=== PATIENT | male | born 1950 | race Two or more races ===

== ENCOUNTER 2017-11-12 21:59 | Emergency (ER) | payer MEDICARE ==
--- NOTE | 2017-11-12 22:28 | EDM.PDOC ---
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 He states that he was carrying some lumbar on 11/05/2017, when one of his feet caught, causing him to twist his body. He developed pain in his upper left buttock. The pain does not radiate. He has tried a heating pad and a topical cream, which he states was doing well up until today. He states that his back started hurting today after work, around 16:00. The pain is made worse if he lies down, although twisting his back does not cause pain. The patient states that he had a lumbar fusion around 30 years ago, and that he has not had any problems with it since. The patient does not have a PCP. left lower back Pain Score (Numeric/FACES): 9 - Related Data Allergies Allergy/AdvReac Type Severity Reaction Status Date / Time No Known Allergies Allergy Verified 11/12/17 22:08 Home Meds: Home Meds Methyl Salicylate/Menth/Camph [Pain Relieving Rub Cream] 1 dose TP ASDIRECTED PRN 11/12/17 [History] Orphenadrine [Norflex] 1 tab PO Q12H PRN #20 tab.er 11/13/17 [Rx] Past Medical History - Past Surgical History Neurological Surgical History: Reports: Lumbar Spine (fusion, around 1987) Social & Family History - Family History Family Medical History: Noncontributory - Tobacco Use Smoking Status *Q: Current Every Day Smoker Years of Tobacco use: 49 Packs/Tins Daily: 0.5 - Caffeine Use Caffeine Use: Reports: Soda - Alcohol Use Alcohol Use History: Yes Alcohol Use Frequency: Socially - Recreational Drug Use Recreational Drug Use: No - Living Situation & Occupation Living situation: Reports: Single, with Family (Son) 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 ED EXAM,LOWER BACK PAIN/INJURY - Physical Exam Exam: See Below Exam Limited By: No Limitations General Appearance: Alert, WD/WN, No Apparent Distress Eye Exam: Bilateral Eye: Normal Inspection Ears: Normal External Exam, Hearing Grossly Normal Nose: Normal Inspection, No Blood Throat/Mouth: Normal Inspection, Normal Lips, Normal Voice, No Airway Compromise Head: Atraumatic, Normocephalic Neck: Normal Inspection, Full Range of Motion Respiratory/Chest: No Respiratory Distress, Lungs Clear, Normal Breath Sounds, No Accessory Muscle Use Cardiovascular: Normal Peripheral Pulses, Regular Rate, Rhythm, No Edema, No Gallop, No JVD, No Murmur, No Rub GI/Abdominal: Normal Bowel Sounds, Soft, Non-Tender, No Organomegaly, No Distention, No Abnormal Bruit, No Mass (Male) Exam: Deferred Rectal (Males) Exam: Deferred Back Exam: Normal Inspection, Full Range of Motion, NT Extremities: Normal Inspection, Normal Range of Motion, No Pedal Edema, Normal Capillary Refill, Other (Reproducible tenderness to a single location in the patient's upper left buttock. Nontender elsewhere.) Neurological: Alert, No Motor/Sensory Deficits, Oriented x 3 Psychiatric: Normal Affect Skin Exam: Warm, Dry, Intact, Normal Color, No Rash Course - Vital Signs Last Recorded V/S: Last Vital Signs Temp 36.7 C 11/12/17 22:04 Pulse 53 L 11/12/17 22:04 Resp 18 11/12/17 22:04 BP 158/89 H 11/12/17 22:04 Pulse Ox 99 11/12/17 22:04 - Orders/Labs/Meds Orders: Active Orders 24 hr Category Date Time Status UA W/MICROSCOPIC [URIN] Stat Lab 11/12/17 22:40 Ordered Labs: Laboratory Tests 11/12/17 Range/Units 22:40 Urine Color Yellow (Yellow) Urine Appearance Clear (Clear) Urine pH 6.5 (5.0-8.0) Ur Specific [place] 1.020 (1.005-1.030) Urine Protein Negative (Negative) Urine Glucose (UA) Negative (Negative) Urine Ketones Negative (Negative) Urine Occult Blood Negative (Negative) Urine Nitrite Negative (Negative) Urine Bilirubin Negative (Negative) Urine Urobilinogen 1.0 (0.2-1.0) Ur Leukocyte Esterase Negative (Negative) Urine RBC 0-5 (0-5) /hpf Urine WBC 0-5 (0-5) /hpf Ur Epithelial Cells 0-5 (0-5) /hpf Urine Bacteria Not seen (FEW) /hpf Urine Mucus Moderate H (FEW) /hpf Meds: Medications Discontinued Medications Generic Name Dose Route Start Last Admin Trade Name Carlos PRN Reason Stop Dose Admin Orphenadrine Citrate 100 mg 11/12/17 22:53 11/12/17 23:08 Norflex PO 11/12/17 22:54 100 mg ONETIME STA Administration - Re-Assessments/Exams Free Text/Narrative Re-Assessment/Exam: 11/12/17 22:27 The patient has reproducible point tenderness to his upper left buttock. This is almost certainly a muscle spasm, however, I just want to make sure that it is not an unusual presentation of a ureterolith, therefore I have asked the patient to provide a urine sample that we will check for blood. 11/13/17 00:02 Test results discussed with the patient. His urinalysis is completely normal, without suggestion of hematuria or UTI. He has been started on oral Norflex, and I will prescribe a ten-day course. I will refer him to Dr. Chaudhry, should his symptoms not improve over the next few days. Departure - Departure Time of Disposition: 00:02 Disposition: Home, Self-Care 01 Condition: Good Clinical Impression: Spasm of muscle of lower back - Discharge Information Prescriptions: Orphenadrine [Norflex] 1 tab PO Q12H PRN #20 tab.er PRN Reason: Muscle Spasm Instructions: Muscle Cramps and Spasms Referrals: PCP,None [Primary Care Provider] - Gladys Chaudhry MD [Physician] - Forms: ED Department Discharge Additional Instructions: You were seen in the emergency room for lower left back pain since 11/05/2017. Workup in the ER included a urinalysis, which returned normal. There is no sign of a kidney stone or urinary tract infection. Based on your history and physical examination, your low back pain is MOST LIKELY due to a muscle spasm or strained muscle. You have been started on the muscle relaxant Norflex. A prescription for Norflex has been sent to the [facility] located in the [place] store. Take one tablet every 12 hours, as prescribed. You may also take [id number] ibuprofen, 2-3 tablets (400-600 mg) every 8 hours, with food. If you are still having pain after 2 or 3 days, please follow-up with Dr. Gladys Chaudhry. If any other problems, please do not hesitate to return to the ER. - My Orders Last 24 Hours: My Active Orders 11/12/17 22:40 UA W/MICROSCOPIC [URIN] Stat - Assessment/Plan Last 24 Hours: My Active Orders 11/12/17 22:40 UA W/MICROSCOPIC [URIN] Stat
[2017-11-12] MEDS ORDERED: Orphenadrine 100 MG Tab.ER PO STA (22:53)
== END 2017-11-13 00:16 | disposition home or self-care (01) ==
LOC: JD.ED 21:59
DX: M62.830 Muscle spasm of back (principal); F17.210 Nicotine dependence, cigarettes, uncomplicated
CPT/HCPCS: 81001; 99283; A9270

== ENCOUNTER 2018-10-09 08:47 | Day surgery (SDC) | payer MEDICARE, OTHER ==
[~2018-10-09 08:47] MED LIST: Lactated Ringers 1,000 ML IV SCH; Lidocaine 1%/Sod Bicarbonate in NS 8.4% 1 ML Syringe IDERM PRN; Sodium Chloride 0.9% 10 ML Syringe FLUSH PRN
[2018-10-09] MEDS ORDERED: Midazolam 1 MG/ML 2 ML SDV ONE (09:03)
[2018-10-09] MEDS ORDERED: fentaNYL 100 MCG/2 ML SDV ONE (09:03)
[2018-10-09] MEDS ORDERED: Lidocaine 1% 4 ML ONE (09:04)
[2018-10-09] MEDS ORDERED: Propofol 200 MG/20 ML SDV ONE (09:08)
[2018-10-09] MEDS ORDERED: Lidocaine 1% 30 ML SDV ONE (10:26)
[2018-10-09] MEDS ORDERED: Triamcinolone Acetonide 40 MG/ML 1 ML MDV ONE (10:34)
--- NOTE | 2018-10-09 10:39 | PCM.PREANE ---
Preanesthetic Assessment - Anesthesia/Transfusion/Family Hx Anesthesia History: Prior Anesthesia Without Reaction Family History of Anesthesia Reaction: No Transfusion History: No Prior Transfusion(s) Intubation History: Unknown - Review of Systems General: No Symptoms Pulmonary: No Symptoms (Smoker: 1ppd times 30 years.) Cardiovascular: No Symptoms Gastrointestinal: No Symptoms Neurological: No Symptoms (History of back pain/Lumbar fusion 1987), Numbness ( bilateral CTS) Other: Reports: None (Prostate CA 2018 (surgery May 2018)-metastasis to intrapelvic lymph node) - Physical Assessment NPO Status Date: 10/08/18 NPO Status Time: 22:00 Pulse: 54 O2 Sat by Pulse Oximetry: 96 Respiratory Rate: 16 Blood Pressure: 138/89 Temperature: 36.9 C Vital Signs: Last Vital Signs Temp 36.9 C 10/09/18 09:00 Pulse 54 L 10/09/18 09:00 Resp 16 10/09/18 09:00 BP 138/89 10/09/18 09:00 Pulse Ox 96 10/09/18 09:00 Height: 1.63 m Weight: 74.389 kg ASA Class: 3 Mental Status: Alert & Oriented x3 Airway Class: Mallampati = 2 Dentition: Reports: Normal Dentition (Implants noted (solid)), Broken Tooth/ Teeth, Missing Tooth/Teeth Thyro-Mental Finger Breadths: 3 Mouth Opening Finger Breadths: 3 ROM/Head Extension: Full Lungs: Clear to Auscultation, Normal Respiratory Effort Cardiovascular: Regular Rate, Regular Rhythm, No Murmurs - Lab Values: All lab values reviewed and noted and within acceptable ranges to proceed with scheduled procedure. MRSA Positive - Imaging/EKG Impressions: EKG: SB rate =52, PVC's noted. - Allergies Allergies/Adverse Reactions: Allergies Allergy/AdvReac Type Severity Reaction Status Date / Time No Known Allergies Allergy Verified 10/08/18 14:44 - Anesthesia Plan Pre-Op Medication Ordered: None - Acknowledgements Anesthesia Type Planned: MAC Pt an Appropriate Candidate for the Planned Anesthesia: Yes Alternatives and Risks of Anesthesia Discussed w Pt/Guardian: Yes Pt/Guardian Understands and Agrees with Anesthesia Plan: Yes PreAnesthesia Questionnaire - Past Health History Medical/Surgical History: Denies Medical/Surgical History HEENT History: Reports: Impaired Vision, Other (See Below) Other HEENT History: Uses reading glasses Cardiovascular History: Reports: None Respiratory History: Reports: None Gastrointestinal History: Reports: None Genitourinary History: Reports: Other (See Below) Other Genitourinary History: Urinary hesitancy Musculoskeletal History: Reports: Back Pain, Chronic, Other (See Below) Other Musculoskeletal History: Right knee bursitis, Lumbar back pain, SI joint pain, carpal tunnel syndrome Neurological History: Reports: None Psychiatric History: Reports: None Endocrine/Metabolic History: Reports: None Hematologic History: Reports: None Immunologic History: Reports: None Oncologic (Cancer) History: Reports: Prostate Dermatologic History: Reports: None - Infectious Disease History Infectious Disease History: Reports: MRSA - Past Surgical History Head Surgeries/Procedures: Reports: None HEENT Surgical History: Reports: None Cardiovascular Surgical History: Reports: None Respiratory Surgical History: Reports: None GI Surgical History: Reports: None Male Surgical History: Reports: Prostatectomy Endocrine Surgical History: Reports: None Neurological Surgical History: Reports: None Musculoskeletal Surgical History: Reports: Other (See Below) Other Musculoskeletal Surgeries/Procedures:: Lumbar fusion Oncologic Surgical History: Reports: None Dermatological Surgical History: Reports: None - SUBSTANCE USE Smoking Status *Q: Current Every Day Smoker Tobacco Use Within Last Twelve Months: Cigarettes Recreational Drug Use History: No - HOME MEDS Home Medications: Home Meds Acetaminophen [Tylenol] 325 - 650 mg PO Q6H PRN 10/08/18 [History] Calcium Carb/Magnesium Hydrox [Antacid 1000-200 mg Tab Chew] 1 tab PO DAILY [History] Cholecalciferol (Vitamin D3) [Vitamin D3] 1,000 units PO DAILY 10/08/18 [History ] Leuprolide Acetate [Lupron Depot] 22.5 mg IM Q90D 10/08/18 [History] traMADol [Ultram] 50 - 100 mg PO Q6H PRN #10 tab 10/09/18 [Rx] - CURRENT (IN HOUSE) MEDS Current Meds: Current Medications Lactated Ringer's (Ringers, Lactated) 1,000 mls @ 125 mls/hr IV ASDIRECTED STEPHEN Stop: 10/09/18 23:00 Last Admin: 10/09/18 09:05 Dose: 125 mls/hr Vancomycin HCl 1 gm/ Sodium (Chloride) 250 mls @ 250 mls/hr IV ONETIME STEPHEN Stop: 10/09/18 12:00 Last Admin: 10/09/18 09:26 Dose: 250 mls/hr Lidocaine/Sodium Bicarbonate (Buffered Lidocaine 1% In Ns 8.4%) 0.25 ml IDERM ONETIME PRN PRN Reason: Prior to IV Start Stop: 10/09/18 18:00 Last Admin: 10/09/18 09:05 Dose: 0.25 ml Sodium Chloride (Saline Flush) 10 ml FLUSH ASDIRECTED PRN PRN Reason: Keep Vein Open Stop: 10/09/18 18:00 Discontinued Medications Bupivacaine HCl (Marcaine 0.25%) Confirm Administered Dose 30 ml .ROUTE .STK- MED ONE Stop: 10/09/18 10:27 Fentanyl (Sublimaze) Confirm Administered Dose 100 mcg .ROUTE .STK-MED ONE Stop: 10/09/18 09:04 Lidocaine HCl (Xylocaine-Mpf 1%) Confirm Administered Dose 4 mls @ as directed .ROUTE .STK-MED ONE Stop: 10/09/18 09:05 Lidocaine HCl (Xylocaine-Mpf 1%) Confirm Administered Dose 30 ml .ROUTE .STK- MED ONE Stop: 10/09/18 10:27 Midazolam HCl (Versed 1 Mg/Ml) Confirm Administered Dose 2 mg .ROUTE .STK-MED ONE Stop: 10/09/18 09:04 Propofol (Diprivan 20 Ml) Confirm Administered Dose 200 mg .ROUTE .STK-MED ONE Stop: 10/09/18 09:09
[2018-10-09] MEDS ORDERED: ceFAZolin 1 GM Vial ONE (10:44)
[2018-10-09] MEDS: Bupivacaine 0.25% 30 ML SDV ONE ×2 (11:09→11:19)
[2018-10-09] MEDS ORDERED: traMADol 50 MG Tab PO SCH (12:05)
--- NOTE | 2018-10-14 07:02 | PCM.OPNOTE ---
- General Post-Op/Procedure Note Date of Surgery/Procedure: 10/09/18 Operative Procedure(s): right carpal tunnel release with left carpal tunnel injection Pre Op Diagnosis: bilateral median nerve compression neuropathy Post-Op Diagnosis: Same Anesthesia Technique: Local, MAC Primary Surgeon: Tyrell Hernandez Anesthesia Provider: Altaf Moreno Mineral Surveyor: Briana Tony EBL in mLs: 5 Complications: None Condition: Good
--- NOTE | 2018-10-14 07:50 | OR ---
DATE OF OPERATION: 10/09/2018 SURGEON: Tyrell Hernandez MD OPERATION PERFORMED: Right carpal tunnel release with left carpal tunnel injection. PREOPERATIVE DIAGNOSIS: Bilateral median nerve compression neuropathy. POSTOPERATIVE DIAGNOSIS: Bilateral median nerve compression neuropathy. ANESTHESIA: Local MAC. AUTOMOBILE SALES CONSULTANT: Briana Tony PA-C. ANESTHESIA PROVIDER: Altaf Moreno CRNA. ESTIMATED BLOOD LOSS: Less than 5 mL. COMPLICATIONS: None. CONDITION: Stable. DESCRIPTION OF PROCEDURE: The patient was identified in the preop holding area. Proper site was marked and identified by the surgeon. The patient was taken back to the operating theater where after adequate anesthesia, the patient's right upper extremity was sterilely prepped and draped in the usual sterile fashion. OR time-out was performed. The patient did not receive antibiotics and it is not indicated for soft tissue hand procedure. At this time, the right upper extremity was exsanguinated and an Esmarch was used as a tourniquet on the forearm. At this time, using 1% lidocaine without epinephrine and 0.25% Marcaine without epinephrine, the palmar cutaneous branch of the median nerve was anesthetized and then the incisional site was anesthetized using Cooley cardinal line and ulnar border of the fourth digit as reference. Once this had set up, an incision was made. Blunt dissection was taken down to the palmar cutaneous fascia. Palmar cutaneous fascia was incised with a [place] blade. At this time, the transverse carpal ligament was identified. A small rent was made in the transverse carpal ligament with a [place] blade under direct visualization. Resection of the transverse carpal ligament was done distally using tenotomy scissors making sure to stop short of the palmar arch. At this time, attention was turned proximally after it was found to be adequately released. Using the tenotomy scissors keeping the tips ulnar to protect the palmar cutaneous branch of the median nerve, the superficial forearm fascia as well as the transverse carpal ligament were resected proximally. It was found to be adequate release both proximally and distally. At this time, adequate saline was irrigated through the wound. 4-0 nylon sutures were used closure of the skin. After this was completed, then under sterile technique, 1 mL 40 mg Kenalog and 2 mL of 0.25% Marcaine were injected to the left carpal tunnel. The patient tolerated both procedures well. The patient was placed in a sterile soft dressing and sent to PACU in stable condition. MMPAGE /[id number]
== END 2018-10-09 12:15 | disposition home or self-care (01) ==
LOC: JD.SDS 08:47
PROVIDERS: ATTEND Orthopaedic Surgery
DX: G56.03 Carpal tunnel syndrome, bilateral upper limbs (principal); F17.210 Nicotine dependence, cigarettes, uncomplicated; C61 Malignant neoplasm of prostate; C77.5 Secondary and unspecified malignant neoplasm of intrapelvic lymph nodes; R10.2 Pelvic and perineal pain; M54.5 Low back pain; E66.3 Overweight; Z68.31 Body mass index [BMI] 31.0-31.9, adult; Z79.899 Other long term (current) drug therapy
CPT/HCPCS: 20605; 64721; A9270; J0690; J2001; J2250; J2704; J3010; J3301; J3370; J3490; J7050; J7120; 01810

== ENCOUNTER 2019-03-17 18:05 | Emergency (ER) | payer MEDICAID, MEDICARE ==
--- NOTE | 2019-03-17 19:14 | EDM.PDOC ---
ED HPI GENERAL MEDICAL PROBLEM - General Chief Complaint: ENT Problem Stated Complaint: DENTAL COMPLAINT Time Seen by Provider: 03/17/19 19:02 Source of Information: Reports: Patient History Limitations: Reports: No Limitations - History of Present Illness INITIAL COMMENTS - FREE TEXT/NARRATIVE: 68 year old male presents to the ED with severe constant pain originating from Rt lower lateral incisor and canine teeth. All of his teeth are in bad shape and he is awaiting to get all of them pulled out and use dentures. Current pain started yesterday pm. Has increased in intensity since. Advil helps somewhat. Had two up Lt teeth removed two weeks ago. Exam reveal all of hsi teeth are in bad shape and all need to be extracted. Current pain is coming from Rt lower canine and lateral incisor teeth. Treated with Motrin 600mg every 6hrs for pain and inflammation. Percocet tabs 5/325mg 1-2 tabs every 4-6hrs prn for pain relief x 14 tabs. Clindamycin 300mg tid for 8 days . Onset: Gradual Onset Date: 03/16/19 Onset Time: 14:00 Duration: Hour(s):, Getting Worse Location: Reports: Face ( dental pain Rt lowr teeth. ) Quality: Reports: Ache, Throbbing Severity: Severe (8/10) Improves with: Reports: Medication (Advil helps a little. ) Worsens with: Reports: Other (touching the teeth or trying to eat. ) Context: Reports: Other (spontaneous occurrence. ) Associated Symptoms: Reports: No Other Symptoms Treatments REVENUE CYCLE ANALYST: Reports: NSAIDS ( Motrin ) Right Lower Tooth/Teeth Pain Score (Numeric/FACES): 10 - Related Data Allergies Allergy/AdvReac Type Severity Reaction Status Date / Time No Known Allergies Allergy Verified 03/17/19 18:29 Home Meds: Home Meds Abiraterone Acetate 250 mg PO DAILY 03/17/19 [History] Clindamycin HCl 300 mg PO TID #24 capsule 03/17/19 [Rx] Levothyroxine 25 mcg PO DAILY 03/17/19 [History] oxyCODONE HCl/Acetaminophen [Percocet 5-325 mg Tablet] 1 - 2 each PO Q4H PRN # 14 tablet 03/17/19 [Rx] predniSONE [Prednisone] 5 mg PO DAILY 03/17/19 [History] Past Medical History - Past Health History Medical/Surgical History: Denies Medical/Surgical History HEENT History: Reports: Impaired Vision, Other (See Below) Other HEENT History: Uses reading glasses Cardiovascular History: Reports: None Respiratory History: Reports: None Gastrointestinal History: Reports: None Genitourinary History: Reports: Other (See Below) Other Genitourinary History: Urinary hesitancy Musculoskeletal History: Reports: Back Pain, Chronic, Other (See Below) Other Musculoskeletal History: Right knee bursitis, Lumbar back pain, SI joint pain, carpal tunnel syndrome Neurological History: Reports: None Psychiatric History: Reports: None Endocrine/Metabolic History: Reports: None Hematologic History: Reports: None Immunologic History: Reports: None Oncologic (Cancer) History: Reports: Prostate (Prostate carcinoma. Currently on testosterone suppression medication.) Dermatologic History: Reports: None - Infectious Disease History Infectious Disease History: Reports: MRSA - Past Surgical History Head Surgeries/Procedures: Reports: None HEENT Surgical History: Reports: None Cardiovascular Surgical History: Reports: None Respiratory Surgical History: Reports: None GI Surgical History: Reports: None Male Surgical History: Reports: Prostatectomy Endocrine Surgical History: Reports: None Neurological Surgical History: Reports: None Musculoskeletal Surgical History: Reports: Other (See Below) Other Musculoskeletal Surgeries/Procedures:: Lumbar fusion Oncologic Surgical History: Reports: None Dermatological Surgical History: Reports: None Social & Family History - Family History Family Medical History: Noncontributory - Tobacco Use Smoking Status *Q: Current Every Day Smoker Years of Tobacco use: 50 Packs/Tins Daily: 0.2 - Caffeine Use Caffeine Use: Reports: Soda - Living Situation & Occupation Living situation: Reports: Single, with Family (Son) 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 Denies : Fever, Chills, Weight Loss HEENT: Reports: Dental Pain (Right lower canine and lateral incisor tooth. Reports all of his teeth are in poor condition. Head to left upper teeth extracted 2 weeks ago by dentist.) Respiratory: Reports: Cough (Has had a productive cough for the last week. No associated fever.). Denies: Shortness of Breath, Wheezing Cardiovascular: Denies: Chest Pain, Blood Pressure Problem, Claudication, Dyspnea on Exertion, Edema, Lightheadedness, Orthopnea Endocrine: Reports: No Symptoms GI/Abdominal: Reports: Decreased Appetite : Reports: Other (Known prostate cancer.) Musculoskeletal: Reports: Back Pain Skin: Reports: No Symptoms Neurological: Reports: No Symptoms Psychiatric: Reports: No Symptoms ED EXAM, ENT - Physical Exam Exam: See Below Exam Limited By: No Limitations General Appearance: Alert, WD/WN, Mild Distress, Other (He appears to be in moderate discomfort. Temperature is 36.6. Pulse is 64 and sinus by 2015 sats of 97% BP 140/98.) Eye Exam: Bilateral Eye: Normal Inspection, PERRL Ears: Normal TMs, Other (Pain is radiating from his teeth up the mandible towards the right ear.) Mouth/Throat: Normal Lips, Dental Pain (Severe dental pain coming from either the right lower canine or lateral incisor tooth. All of his teeth are in poor condition.). No: Normal Gums Head: Atraumatic, Normocephalic Neck: Normal Inspection, Supple, Non-Tender, Full Range of Motion. No: Lymphadenopathy (L), Lymphadenopathy (R) Respiratory/Chest: No Respiratory Distress, Lungs Clear, Normal Breath Sounds, No Accessory Muscle Use, Other Cardiovascular: Normal Peripheral Pulses (Does have a productive sounding cough. ), Regular Rate, Rhythm, No Edema, No Gallop, No Murmur, No Rub Course - Vital Signs Last Recorded V/S: Last Vital Signs Temp 36.6 C 03/17/19 18:27 Pulse 64 03/17/19 18:27 Resp 16 03/17/19 18:27 BP 140/98 H 03/17/19 18:27 Pulse Ox 97 03/17/19 18:27 - Radiology Interpretation Free Text/Narrative:: 68-year-old male [place] descent presents to the ED with dental pain coming from his right lower canine and lateral incisor tooth. Both are very tender to touch and it's impossible tell which one is causing current symptom complex. His teeth are in very poor condition with erosion of all of the enamel from the crowns of all of the teeth with exposed pulp. He is planning on having all his teeth removed and getting dentures. He taken into the dentist for at least another week. Current pain as above is coming from lateral incisor right side or the canine tooth right lower mandible. Treatment will be continued Motrin 600 mg every 6 hours to relieve pain and inflammation. Percocet tabs 5/325 mg one or 2 every 4-6 hours as needed for pain relief. Antibiotic because and clindamycin 300 mg 3 times a day for the next 8 days to clear up dental infection. Follow-up with dentist as soon as able. Departure - Departure Time of Disposition: 19:10 Disposition: Home, Self-Care 01 Condition: Fair Clinical Impression: Dental infection - Discharge Information *PRESCRIPTION DRUG MONITORING PROGRAM REVIEWED*: No *COPY OF PRESCRIPTION DRUG MONITORING REPORT IN PATIENT RANJEET: No Prescriptions: Clindamycin HCl 300 mg PO TID #24 capsule oxyCODONE HCl/Acetaminophen [Percocet 5-325 mg Tablet] 1 - 2 each PO Q4H PRN # 14 tablet PRN Reason: pain relief. Instructions: Dental Abscess Referrals: Gladys Chaudhry MD [Primary Care Provider] - Forms: ED Department Discharge Additional Instructions: Evaluation in the ED tonight in regards to sever dental pain originating from the Rt lower canine tooth and lateral incisor tooth. Treatment is to continue Motrin( Advil) 600mg every 6hrs to relieve pain and inflammation. Antibiotic is to be Clindamycin 300mg every 8 hrs for the next 8 days to clear up dental infection. Percocet tabs 5/325mg 1-2 tabs every 4hrs as needed for severe pain relief. Follow u pwith dentis t when able as teeth will need to be extracted.
== END 2019-03-17 19:26 | disposition home or self-care (01) ==
LOC: JD.ED 18:05
DX: K04.7 Periapical abscess without sinus (principal); F17.210 Nicotine dependence, cigarettes, uncomplicated; Z85.46 Personal history of malignant neoplasm of prostate
CPT/HCPCS: 99282; 99283

== ENCOUNTER 2019-11-29 11:16 | Emergency (ER) | payer MEDICARE, MEDICAID ==
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
== END 2019-11-29 13:40 | disposition home or self-care (01) ==
LOC: JD.ED 11:16
DX: H81.10 Benign paroxysmal vertigo, unspecified ear (principal); Z79.899 Other long term (current) drug therapy
CPT/HCPCS: 36415; 80053; 82607; 82746; 83735; 83880; 85025; 99283; 99284

== ENCOUNTER 2021-09-20 09:33 | Day surgery (SDC) | payer MEDICARE, OTHER ==
[~2021-09-20 09:33] MED LIST changes: +Sodium Chloride 0.9% 10 ML Syringe FLUSH SCH
[2021-09-20] MEDS ORDERED: Albuterol 0.083% 2.5 MG/3 ML Neb Soln NEB SCH (11:00)
[2021-09-20] MEDS ORDERED: Propofol 200 MG/20 ML SDV ONE ×2 (11:14→11:19)
== END 2021-09-20 12:35 | disposition home or self-care (01) ==
LOC: JD.SDS 09:33
PROVIDERS: ATTEND Surgery
DX: K44.9 Diaphragmatic hernia without obstruction or gangrene (principal); D64.9 Anemia, unspecified; K21.9 Gastro-esophageal reflux disease without esophagitis; E03.9 Hypothyroidism, unspecified; E11.9 Type 2 diabetes mellitus without complications; E55.9 Vitamin D deficiency, unspecified; F17.210 Nicotine dependence, cigarettes, uncomplicated; H54.7 Unspecified visual loss; E78.00 Pure hypercholesterolemia, unspecified; Z79.84 Long term (current) use of oral hypoglycemic drugs; Z79.890 Hormone replacement therapy; Z79.899 Other long term (current) drug therapy
CPT/HCPCS: 43239; 45378; J2704; J7120; 00813

== ENCOUNTER 2023-02-26 17:20 | Emergency (ER) | payer MEDICAID, MEDICARE, OTHER ==
[2023-02-26] MEDS ORDERED: Fluorescein 1 MG Ophth Strip ONE (18:57)
[2023-02-26] MEDS ORDERED: Dexamethasone/Neomycin/Polymyxin B Ophth Susp 5 ML Bottle EYERT ONE (19:25)
[2023-02-26] MEDS ORDERED: Fluorescein 1 MG Ophth Strip EYERT ONE (19:27)
[2023-02-26] MEDS ORDERED: Dexamethasone/Tobramycin 0.1-0.3% Ophth Susp 5 ML Bottle EYERT SCH (19:30)
[2023-02-26] MEDS ORDERED: prednisoLONE Acetate 1% Ophth Susp 5 ML Bottle ONE (19:48)
[2023-02-26] MEDS ORDERED: Ciprofloxacin 0.3% Ophth Soln 5 ML Bottle EYERT SCH (20:00)
[2023-02-26] MEDS ORDERED: prednisoLONE Acetate 1% Ophth Susp 5 ML Bottle EYERT SCH (21:00)
== END 2023-02-26 20:50 | disposition home or self-care (01) ==
LOC: JD.ED 17:20 → MERGE 17:20 → JD.ED 20:50
DX: S05.01XA Injury of conjunctiva and corneal abrasion without foreign body, right eye, initial encounter (principal); E03.9 Hypothyroidism, unspecified; K21.9 Gastro-esophageal reflux disease without esophagitis; E78.00 Pure hypercholesterolemia, unspecified; E11.9 Type 2 diabetes mellitus without complications; F17.210 Nicotine dependence, cigarettes, uncomplicated; Z79.899 Other long term (current) drug therapy; Z79.84 Long term (current) use of oral hypoglycemic drugs; W45.8XXA Other foreign body or object entering through skin, initial encounter
CPT/HCPCS: 99283; A9270